=== PATIENT | male | born 2000 | race Caucasian/White ===

== ENCOUNTER 2023-11-27 18:47 | Emergency (ER) | payer OTHER, SELFPAY ==
[2023-11-27 18:54] VITALS: BP 131/72; PULSE 107; RESP 20; TEMP 36.6; O2SAT 96; BMI 24.5
[2023-11-27 19:16] LABS: Strep Grp A by PCR Rapid Negative (Negative)
--- NOTE | 2023-11-27 19:29 | DI.RAD.S_ITS ---
PROCEDURE: XR CHEST 2V INDICATIONS: Cough x 1 week TECHNIQUE: 2 views of the chest were acquired. COMPARISON: None. FINDINGS: Surgical changes and devices: None. Lungs and pleura: Increased bronchovascular markings in bilateral hilar region are seen with mild bronchial wall thickening. No focal infiltrate. No pleural effusions or pneumothorax. Mediastinum: Mediastinal contours are normal. Heart size is normal. Bones and chest wall: No suspicious bony abnormalities. Soft tissues appear unremarkable. IMPRESSION: Suggestion of mild reactive grade worry disease such as bronchiolitis or viral illness. No definite focal infiltrate. No pleural effusion or pneumothorax. Dictated by: Chay Jamil M.D. on 11/27/2023 at 19:42 Approved by: Chay Jamil M.D. on 11/27/2023 at 19:42
[2023-11-27 20:28] LABS: Adenovirus Not Detected (Not Detect); B. parapertussis Not Detected (Not Detecte); Bordetella pertussis Not Detected (Not Detect); Chlamydophila pneumoniae Not Detected (Not Detect); Coronavirus 229E Not Detected (Not Detect); Coronavirus HKU1 Not Detected (Not Detect); Coronavirus NL 63 Not Detected (Not Detect); Coronavirus OC43 Not Detected (Not Detect); Human Metapneumovirus Not Detected (Not Detect); Human Rhinovirus/Enterovirus Not Detected (Not Detect); Influenza A Not Detected (Not Detect); Influenza B Not Detected (Not Detect); Mycoplasma pneumoniae Not Detected (Not Detect); Parainfluenza Virus 1 Not Detected (Not Detect); Parainfluenza Virus 2 Not Detected (Not Detect); Parainfluenza Virus 3 Not Detected (Not Detect); Parainfluenza Virus 4 Not Detected (Not Detect); Respiratory Syncytial Virus Not Detected (Not Detect); SARS- CoV-2 Not Detected (Not Detecte)
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
[2023-11-27 20:49] VITALS: BP 128/71; PULSE 98; O2SAT 97
[2023-11-27] MEDS: CLINDAMYCIN 150 MG CAPSULE 300 MG PO (20:53)
[2023-11-27] MEDS: DEXAMETHASONE 10 MG/ML VIAL PO (20:54)
[2023-11-27 20:57] VITALS: BP 122/72; PULSE 104; O2SAT 97
== END 2023-11-27 21:06 | disposition home or self-care (01) ==
PROVIDERS: Emergency Provider Emergency Medicine
DX: J03.90 Acute tonsillitis, unspecified (principal)
CPT/HCPCS: 71046; 87070; 87077; 87147; 87633; 87651; 99283; J1100